=== PATIENT | female | born 1955 | race Caucasian/White ===

== ENCOUNTER 2023-05-30 17:15 | Inpatient (IN) | payer MEDICARE ==
[~2023-05-30 17:15] MED LIST: Iopamidol-370 76% 500 ML MDV (1 ML CHARGE) ONE
[2023-05-30 18:01] LABS: #Monocytes 0.6 thou/uL (0.11-0.59); #Neutrophils 7.3 thou/uL (1.40-6.50); %Basophils 0.4 % (0.0-1.0); %Eosinophils 0.3 % (0.0-10.0); %Lymphocytes 16.5 % (21.0-51.0); %Monocytes 6.6 % (0.0-10.0); %Neutrophils 75.9 % (42.0-75.0); Hematocrit 44.6 % (36.0-47.0); Hemoglobin 14.7 g/dL (12.0-16.0); Mean Corpuscular Hemoglobin 28.1 pg (27.0-31.0); Mean Corpuscular Volume 85.1 fl (78.0-98.0); Platelet Count 326 10x3/uL (130-400); RBC Distribution Width 12.9 % (11.5-14.5); Red Blood Cell (RBC) Count 5.24 mill/uL (4.20-5.40); White Blood Cell (WBC) Count 9.6 10x3/uL (4.8-10.8)
[2023-05-30 18:24] LABS: ALT (SGPT) 34 U/L (8-55); AST (SGOT) 27 U/L (5-34); Albumin 4.3 g/dL (3.4-4.8); Alkaline Phosphatase 90 U/L (40-110); Anion Gap 26 mmol/L (10-20); BUN (Urea Nitrogen) 11 mg/dL (9.8-20.1); Bilirubin, Total 0.3 mg/dL (0.2-1.2); Calc. Creatinine Clearance 0 mL/min (70-130); Calcium 10.2 mg/dL (7.8-10.44); Carbon Dioxide 21 mmol/L (23-31); Chloride 98 mmol/L (98-107); Estimated GFR 55; Globulin 3.7 g/dL (2.4-3.5); Glucose 134 mg/dL (80-115); Potassium 3.6 mmol/L (3.5-5.1); Sodium 141 mmol/L (136-145)
[2023-05-30 18:36] LABS: Bacteria/HPF 4+ HPF (None Seen); Bilirubin Negative (Negative); Blood, Urine Negative (Negative); CAUTI Indications for Culture Pelvic or flank pain; Clarity Clear (Clear); Glucose, Urine (Dipstick) Normal (Negative); Ketone, Urine Greater than 150 mg/dL (Negative); Leukocyte 75 Leu/uL (Negative); Nitrite Negative (Negative); Protein, Urine (Dipstick) 70 mg/dL (Neg-Trace); RBC/HPF 0-3 HPF (0-3); Specific Gravity, Urine 1.022 (1.002-1.036); Urobilinogen Normal mg/dL (Less than 2)
[2023-05-30 18:37] LABS: Urine Culture Reflex No No
[2023-05-31] MEDS ORDERED: Acetaminophen 325 MG TAB PO PRN (00:08)
[2023-05-31] MEDS ORDERED: Ondansetron ODT 4 MG TAB PO PRN (00:08)
[2023-05-31] MEDS ORDERED: Calcium Carbonate 500 MG ChewTAB PO PRN (00:08)
[2023-05-31] MEDS ORDERED: D5 1/2 NS w/20 mEq KCL 1,000 ML IV SCH (00:15)
[2023-05-31] MEDS ORDERED: cefTRIAXone\\ROCEPHIN 1 GM in Sodium Chloride 0.9% 100 ML IVPB SCH (00:15)
[2023-05-31 01:14] VITALS: BMI 20.9
[2023-05-31 07:43] LABS: Anion Gap 18 mmol/L (10-20); BUN (Urea Nitrogen) 7 mg/dL (9.8-20.1); Calc. Creatinine Clearance 53 mL/min (70-130); Calcium 9.2 mg/dL (7.8-10.44); Carbon Dioxide 24 mmol/L (23-31); Chloride 100 mmol/L (98-107); Estimated GFR 71; Glucose 164 mg/dL (80-115); Sodium 139 mmol/L (136-145)
[2023-05-31 07:58] LABS: Potassium 2.6 mmol/L (3.5-5.1)
[2023-05-31] MEDS: Aspirin 81 mg Enteric Coated Tablet PO SCH (08:39)
[2023-05-31] MEDS: Amlodipine 10 MG TAB PO SCH (08:39)
[2023-05-31] MEDS: Lisinopril 20 MG TAB PO SCH (08:40)
[2023-05-31] MEDS: Famotidine/PF 20 mg/2ml Vial SLOW IVP SCH ×2 (08:40→21:44)
[2023-05-31] MEDS: metFORMIN 500 MG TAB PO SCH ×2 (08:40→18:01)
[2023-05-31] MEDS: Atorvastatin Calcium 40 MG TAB PO SCH (08:40)
[2023-05-31] MEDS: Dorzolamide HCl 2% Ophth Soln 10 ml Bottle EA EYE SCH (08:59)
[2023-05-31] MEDS: Ondansetron PF 4 MG/2 ML Vial IVP PRN (08:59)
[2023-05-31] MEDS ORDERED: FLU VACC QS2023(65UP)/MF59C/PF 60 MCG/0.5 ML SYRINGE IM ONE (09:00)
[2023-05-31] MEDS ORDERED: Electrolyte Replacement Protocol FS PRN (09:00)
[2023-05-31] MEDS ORDERED: Electrolyte Replacement Protocol 1 EACH FS SCH (09:00)
[2023-05-31] MEDS ORDERED: Famotidine 20 MG TAB PO SCH (09:00)
[2023-05-31] MEDS: Potassium Chloride 20 MEQ in Premix Bag 1 BAG IVPB SCH ×4 (09:21→15:14)
[2023-05-31] MEDS: Venlafaxine HCl XR 150 MG CAP PO SCH (09:27)
[2023-05-31 09:45] LABS: Magnesium 1.5 mg/dL (1.6-2.6)
[2023-05-31] MEDS ORDERED: Magnesium 2 GM/50 ML(in water) 2 GM in Premix Bag 1 BAG IVPB SCH (10:00)
[2023-05-31] MEDS: Lactated Ringer's 1,000 ML IV SCH ×2 (10:26→21:42)
[2023-05-31 12:04] LABS: SARS-CoV-2 NAA Rapid Test Not Detected (NotDetected)
[2023-05-31 13:12] LABS: Anion Gap 15 mmol/L (10-20); BUN (Urea Nitrogen) 4 mg/dL (9.8-20.1); Calc. Creatinine Clearance 60 mL/min (70-130); Calcium 9.2 mg/dL (7.8-10.44); Carbon Dioxide 25 mmol/L (23-31); Chloride 101 mmol/L (98-107); Estimated GFR 84; Glucose 151 mg/dL (80-115); Potassium 3.2 mmol/L (3.5-5.1); Sodium 138 mmol/L (136-145)
[2023-05-31] MEDS ORDERED: Non-Formulary Item 1 EACH (Trazodone Hcl [Trazodone Hcl] 100 MG Tablet) PO SCH (21:00)
[2023-05-31] MEDS: traZODone HCl 50 MG TAB PO SCH (21:43)
[2023-05-31] MEDS: Amitriptyline HCl 25 MG TAB PO SCH (21:44)
[2023-05-31 22:10] LABS: Potassium 3.5 mmol/L (3.5-5.1)
[2023-05-31] MEDS: Latanoprost 0.005% Ophth Soln 2.5 ml Bottle EA EYE SCH (23:38)
[2023-06-01] MEDS: Potassium Chloride 20 MEQ in Premix Bag 1 BAG IVPB SCH ×2 (01:32→03:48)
[2023-06-01 05:19] LABS: #Basophils 0.1 thou/uL (0.0-0.2); #Eosinphils 0.1 thou/uL (0.0-0.7); #Monocytes 0.6 thou/uL (0.11-0.59); #Neutrophils 2.9 thou/uL (1.40-6.50); %Basophils 0.9 % (0.0-1.0); %Eosinophils 2.1 % (0.0-10.0); %Lymphocytes 37.3 % (21.0-51.0); %Monocytes 10.8 % (0.0-10.0); %Neutrophils 48.7 % (42.0-75.0); Hematocrit 36.7 % (36.0-47.0); Hemoglobin 12.1 g/dL (12.0-16.0); Mean Corpuscular Hemoglobin 27.9 pg (27.0-31.0); Mean Corpuscular Volume 84.6 fl (78.0-98.0); Mean Platelet Volume 10.2 fL (7.4-10.4); Platelet Count 271 10x3/uL (130-400); RBC Distribution Width 12.8 % (11.5-14.5); Red Blood Cell (RBC) Count 4.34 mill/uL (4.20-5.40); White Blood Cell (WBC) Count 5.8 10x3/uL (4.8-10.8)
[2023-06-01 05:52] LABS: Anion Gap 14 mmol/L (10-20); BUN (Urea Nitrogen) Less than 4 mg/dL (9.8-20.1); Calc. Creatinine Clearance 59 mL/min (70-130); Carbon Dioxide 25 mmol/L (23-31); Chloride 104 mmol/L (98-107); Estimated GFR 82; Glucose 100 mg/dL (80-115); Magnesium 1.7 mg/dL (1.6-2.6); Potassium 3.7 mmol/L (3.5-5.1); Sodium 139 mmol/L (136-145)
[2023-06-01] MEDS ORDERED: Magnesium 2 GM/50 ML(in water) 2 GM in Premix Bag 1 BAG IVPB SCH (08:00)
[2023-06-01 08:35] LABS: Potassium 3.8 mmol/L (3.5-5.1)
[2023-06-01 09:20] LABS: Amphetamine Not Detected (NotDetected); Barbiturates Screen Not Detected (NotDetected); Benzodiazepine Screen Not Detected (NotDetected); Cocaine Metabolite Screen Not Detected (NotDetected); Methadone Not Detected (NotDetected); Methamphetamine Not Detected (NotDetected); Opiate Screen Not Detected (NotDetected); Oxycodone Screen Not Detected (NotDetected); Phencyclidine (PCP) Not Detected (NotDetected); THC/Cannabinoid Screen Not Detected (NotDetected); Tricyclic Screen Detected (NotDetected)
[2023-06-01] MEDS: Lactated Ringer's 1,000 ML IV SCH ×3 (09:27→23:18)
[2023-06-01] MEDS: metFORMIN 500 MG TAB PO SCH ×2 (12:04→16:37)
[2023-06-01] MEDS: Ondansetron PF 4 MG/2 ML Vial IVP PRN (12:06)
[2023-06-01] MEDS: Famotidine/PF 20 mg/2ml Vial SLOW IVP SCH ×2 (12:06→20:37)
[2023-06-01] MEDS: Aspirin 81 mg Enteric Coated Tablet PO SCH (12:07)
[2023-06-01] MEDS: Atorvastatin Calcium 40 MG TAB PO SCH (12:07)
[2023-06-01] MEDS: Amlodipine 10 MG TAB PO SCH (12:07)
[2023-06-01] MEDS: Lisinopril 20 MG TAB PO SCH (12:07)
[2023-06-01] MEDS: Venlafaxine HCl XR 150 MG CAP PO SCH (12:08)
[2023-06-01] MEDS: Dorzolamide HCl 2% Ophth Soln 10 ml Bottle EA EYE SCH (12:08)
[2023-06-01] MEDS: Latanoprost 0.005% Ophth Soln 2.5 ml Bottle EA EYE SCH (20:35)
[2023-06-01] MEDS: traZODone HCl 50 MG TAB PO SCH (20:36)
[2023-06-01] MEDS: Amitriptyline HCl 25 MG TAB PO SCH (20:37)
[2023-06-02 06:35] LABS: #Eosinphils 0.1 thou/uL (0.0-0.7); #Monocytes 0.5 thou/uL (0.11-0.59); #Neutrophils 3.8 thou/uL (1.40-6.50); %Basophils 0.6 % (0.0-1.0); %Eosinophils 2.1 % (0.0-10.0); %Monocytes 7.5 % (0.0-10.0); %Neutrophils 60.3 % (42.0-75.0); Hematocrit 34.6 % (36.0-47.0); Hemoglobin 11.2 g/dL (12.0-16.0); Mean Corpuscular HGB CONC 32.4 g/dL (32.0-36.0); Mean Corpuscular Hemoglobin 27.8 pg (27.0-31.0); Mean Corpuscular Volume 85.9 fl (78.0-98.0); Mean Platelet Volume 10.5 fL (7.4-10.4); Platelet Count 244 10x3/uL (130-400); Red Blood Cell (RBC) Count 4.03 mill/uL (4.20-5.40); White Blood Cell (WBC) Count 6.2 10x3/uL (4.8-10.8)
[2023-06-02 07:20] LABS: Anion Gap 12 mmol/L (10-20); BUN (Urea Nitrogen) 5 mg/dL (9.8-20.1); Calc. Creatinine Clearance 57 mL/min (70-130); Calcium 8.7 mg/dL (7.8-10.44); Carbon Dioxide 27 mmol/L (23-31); Chloride 104 mmol/L (98-107); Estimated GFR 79; Glucose 110 mg/dL (80-115); Magnesium 1.7 mg/dL (1.6-2.6); Potassium 3.2 mmol/L (3.5-5.1); Sodium 140 mmol/L (136-145)
[2023-06-02] MEDS: Famotidine/PF 20 mg/2ml Vial SLOW IVP SCH ×2 (09:22→20:22)
[2023-06-02] MEDS: Lactated Ringer's 1,000 ML IV SCH ×2 (09:24→23:10)
[2023-06-02] MEDS: metFORMIN 500 MG TAB PO SCH ×2 (09:40→17:14)
[2023-06-02] MEDS: Aspirin 81 mg Enteric Coated Tablet PO SCH (09:41)
[2023-06-02] MEDS: Atorvastatin Calcium 40 MG TAB PO SCH (09:41)
[2023-06-02] MEDS: Amlodipine 10 MG TAB PO SCH ×2 (09:41→10:10)
[2023-06-02] MEDS: Lisinopril 20 MG TAB PO SCH ×2 (09:42→10:10)
[2023-06-02] MEDS: Dorzolamide HCl 2% Ophth Soln 10 ml Bottle EA EYE SCH (09:42)
[2023-06-02] MEDS: Venlafaxine HCl XR 150 MG CAP PO SCH (09:42)
[2023-06-02] MEDS ORDERED: Magnesium 2 GM/50 ML(in water) 2 GM in Premix Bag 1 BAG IVPB SCH (10:45)
[2023-06-02] MEDS ORDERED: PROPOFOL 200 MG/20 ML VIAL ONE (13:30)
[2023-06-02] MEDS ORDERED: Lidocaine 1% PF 5 ML VIAL ONE (13:30)
[2023-06-02] MEDS ORDERED: Ondansetron PF 4 MG/2 ML Vial ONE (13:30)
[2023-06-02] MEDS: Potassium Chloride 20 MEQ in Premix Bag 1 BAG IVPB SCH ×2 (15:49→17:14)
[2023-06-02] MEDS: Ondansetron PF 4 MG/2 ML Vial IVP PRN (17:57)
[2023-06-02] MEDS: Latanoprost 0.005% Ophth Soln 2.5 ml Bottle EA EYE SCH (20:22)
[2023-06-02] MEDS: traZODone HCl 50 MG TAB PO SCH (20:24)
[2023-06-02] MEDS: Amitriptyline HCl 25 MG TAB PO SCH (20:26)
[2023-06-03 04:13] LABS: #Eosinphils 0.3 thou/uL (0.0-0.7); #Monocytes 0.4 thou/uL (0.11-0.59); #Neutrophils 2.7 thou/uL (1.40-6.50); %Basophils 0.6 % (0.0-1.0); %Eosinophils 5.5 % (0.0-10.0); %Lymphocytes 35.7 % (21.0-51.0); %Monocytes 7.4 % (0.0-10.0); %Neutrophils 50.4 % (42.0-75.0); Hematocrit 37.3 % (36.0-47.0); Hemoglobin 12.1 g/dL (12.0-16.0); Mean Corpuscular HGB CONC 32.4 g/dL (32.0-36.0); Mean Corpuscular Hemoglobin 27.8 pg (27.0-31.0); Mean Corpuscular Volume 85.6 fl (78.0-98.0); Mean Platelet Volume 10.3 fL (7.4-10.4); Platelet Count 252 10x3/uL (130-400); RBC Distribution Width 12.9 % (11.5-14.5); Red Blood Cell (RBC) Count 4.36 mill/uL (4.20-5.40); White Blood Cell (WBC) Count 5.3 10x3/uL (4.8-10.8)
[2023-06-03 04:39] LABS: Anion Gap 13 mmol/L (10-20); BUN (Urea Nitrogen) Less than 4 mg/dL (9.8-20.1); Calc. Creatinine Clearance 62 mL/min (70-130); Calcium 9.1 mg/dL (7.8-10.44); Carbon Dioxide 27 mmol/L (23-31); Chloride 104 mmol/L (98-107); Estimated GFR 88; Glucose 99 mg/dL (80-115); Magnesium 1.7 mg/dL (1.6-2.6); Potassium 3.5 mmol/L (3.5-5.1); Sodium 140 mmol/L (136-145)
[2023-06-03] MEDS ORDERED: Magnesium 2 GM/50 ML(in water) 2 GM in Premix Bag 1 BAG IVPB SCH (08:00)
[2023-06-03] MEDS: Lisinopril 20 MG TAB PO SCH (10:21)
[2023-06-03] MEDS: Atorvastatin Calcium 40 MG TAB PO SCH (10:21)
[2023-06-03] MEDS: Amlodipine 10 MG TAB PO SCH (10:21)
[2023-06-03] MEDS: Aspirin 81 mg Enteric Coated Tablet PO SCH (10:21)
[2023-06-03] MEDS: Venlafaxine HCl XR 150 MG CAP PO SCH (10:29)
[2023-06-03] MEDS: Lactated Ringer's 1,000 ML IV SCH ×2 (10:30→20:12)
[2023-06-03] MEDS: Dorzolamide HCl 2% Ophth Soln 10 ml Bottle EA EYE SCH (10:31)
[2023-06-03] MEDS: metFORMIN 500 MG TAB PO SCH ×2 (10:31→16:39)
[2023-06-03] MEDS: Famotidine/PF 20 mg/2ml Vial SLOW IVP SCH ×2 (10:32→20:12)
[2023-06-03] MEDS: Potassium Chloride 20 MEQ in Premix Bag 1 BAG IVPB SCH ×2 (11:37→14:06)
[2023-06-03] MEDS: Metoclopramide HCl 10 MG/2 ML VIAL IVP SCH ×2 (15:46→21:29)
[2023-06-03] MEDS: traZODone HCl 50 MG TAB PO SCH (20:12)
[2023-06-03] MEDS: Latanoprost 0.005% Ophth Soln 2.5 ml Bottle EA EYE SCH (20:12)
[2023-06-04 04:38] LABS: #Eosinphils 0.2 thou/uL (0.0-0.7); #Monocytes 0.4 thou/uL (0.11-0.59); #Neutrophils 3.4 thou/uL (1.40-6.50); %Basophils 0.5 % (0.0-1.0); %Eosinophils 3.7 % (0.0-10.0); %Lymphocytes 30.5 % (21.0-51.0); %Monocytes 7.4 % (0.0-10.0); %Neutrophils 57.6 % (42.0-75.0); Hematocrit 35.6 % (36.0-47.0); Hemoglobin 11.7 g/dL (12.0-16.0); Mean Corpuscular HGB CONC 32.9 g/dL (32.0-36.0); Mean Corpuscular Hemoglobin 28.1 pg (27.0-31.0); Mean Corpuscular Volume 85.4 fl (78.0-98.0); Mean Platelet Volume 9.8 fL (7.4-10.4); Platelet Count 224 10x3/uL (130-400); RBC Distribution Width 12.9 % (11.5-14.5); Red Blood Cell (RBC) Count 4.17 mill/uL (4.20-5.40); White Blood Cell (WBC) Count 5.9 10x3/uL (4.8-10.8)
[2023-06-04 05:06] LABS: Anion Gap 15 mmol/L (10-20); BUN (Urea Nitrogen) 4 mg/dL (9.8-20.1); Calc. Creatinine Clearance 62 mL/min (70-130); Calcium 8.8 mg/dL (7.8-10.44); Carbon Dioxide 24 mmol/L (23-31); Chloride 103 mmol/L (98-107); Estimated GFR 86; Glucose 99 mg/dL (80-115); Magnesium 1.8 mg/dL (1.6-2.6); Potassium 3.7 mmol/L (3.5-5.1); Sodium 138 mmol/L (136-145)
[2023-06-04] MEDS: Metoclopramide HCl 10 MG/2 ML VIAL IVP SCH ×2 (05:33→15:19)
[2023-06-04] MEDS: Lactated Ringer's 1,000 ML IV SCH ×2 (05:33→15:18)
[2023-06-04] MEDS ORDERED: Magnesium 2 GM/50 ML(in water) 2 GM in Premix Bag 1 BAG IVPB SCH (08:00)
[2023-06-04] MEDS: Lisinopril 20 MG TAB PO SCH (09:09)
[2023-06-04] MEDS: metFORMIN 500 MG TAB PO SCH (09:10)
[2023-06-04] MEDS: Aspirin 81 mg Enteric Coated Tablet PO SCH (09:10)
[2023-06-04] MEDS: Atorvastatin Calcium 40 MG TAB PO SCH (09:10)
[2023-06-04] MEDS: Amlodipine 10 MG TAB PO SCH (09:11)
[2023-06-04] MEDS: Dorzolamide HCl 2% Ophth Soln 10 ml Bottle EA EYE SCH (09:12)
[2023-06-04] MEDS: Famotidine/PF 20 mg/2ml Vial SLOW IVP SCH (09:13)
[2023-06-04] MEDS: Ondansetron PF 4 MG/2 ML Vial IVP PRN (11:21)
[2023-06-04 15:40] VITALS: BP 157/79; TEMP 97.3
== END 2023-06-04 18:20 | disposition home or self-care (01) | DRG 74 ==
LOC: ERS 17:15 → INTOOBSV 23:03 → T4-A 23:03 → 2SE 05-31 20:08 → OBSVTOIN 06-01 13:58
PROVIDERS: ADMIT Student in an Organized Health Care Education/Training Program; ATTEND Internal Medicine
PROC: 4A10X4Z Monitoring of Central Nervous Electrical Activity, External Approach (ICD-10-PCS; principal; 2023-06-01)
DX: E11.43 Type 2 diabetes mellitus with diabetic autonomic (poly)neuropathy (principal); E87.20 Acidosis, unspecified; I10 Essential (primary) hypertension; E78.5 Hyperlipidemia, unspecified; R27.0 Ataxia, unspecified; I08.1 Rheumatic disorders of both mitral and tricuspid valves; K29.60 Other gastritis without bleeding; B96.81 Helicobacter pylori [H. pylori] as the cause of diseases classified elsewhere; K31.84 Gastroparesis; Z11.52 Encounter for screening for COVID-19; Z79.82 Long term (current) use of aspirin; Z79.899 Other long term (current) drug therapy; Z79.84 Long term (current) use of oral hypoglycemic drugs; Z86.73 Personal history of transient ischemic attack (TIA), and cerebral infarction without residual deficits; Z90.49 Acquired absence of other specified parts of digestive tract
CPT/HCPCS: 36415; 36416; 70553; 74177; 78264; 80048; 80053; 80306; 81001; 82607; 83605; 83735; 85025; 93005; 93010; 93306; 93880; 96361; 96374; 96375; 96376; A9541; G0378; J0696; J2405; J2704; J2765; J3475; J3480; J3490; J7120; Q0162; Q9967; S0028